=== PATIENT | female | born 1995 | race Caucasian/White ===

== ENCOUNTER 2017-10-25 11:55 | Emergency (ER) | payer BC ==
[2017-10-25] MEDS ORDERED: diphenhydrAMINE 25 MG CAP PO ONE (12:24)
--- NOTE | 2017-10-25 12:52 | EDPHY ---
H & P Stated Complaint: possible allergic reaction Time Seen by Provider: 10/25/17 12:51 HPI/ROS: CHIEF COMPLAINT: Rash after taking penicillin HISTORY OF PRESENT ILLNESS: The patient presents to the ED with a fine rash on her hands after starting penicillin for presumed streptococcal pharyngitis. The patient has a history of chronic intermittent tonsillitis. She has taken amoxicillin in the past many times without a reaction. She denies any chest pain, difficulty breathing or other acute complaints. REVIEW OF SYSTEMS: A comprehensive 10 point review of systems is otherwise negative aside from elements mentioned in the history of present illness. Source: Patient Exam Limitations: No limitations - Personal History LMP (Females 10-55): 8-14 Days Ago Current Tetanus/Diphtheria Vaccine: Yes Current Tetanus Diphtheria and Acellular Pertussis (TDAP): Yes - Medical/Surgical History Hx Asthma: No Hx Chronic Respiratory Disease: No Hx Diabetes: No Hx Cardiac Disease: No Hx Renal Disease: No Hx Cirrhosis: No Hx Alcoholism: No Hx HIV/AIDS: No Hx Splenectomy or Spleen Trauma: No Other PMH: bronchitis - Social History Smoking Status: Never smoked - Physical Exam Exam: General Appearance: Alert, no distress Eyes: Pupils equal and round no pallor or injection ENT, Mouth: Pharyngeal erythema noted, no peritonsillar mass or swelling Respiratory: There are no retractions, lungs are clear to auscultation Cardiovascular: Regular rate and rhythm Gastrointestinal: Abdomen is soft and nontender, no masses, bowel sounds normal Neurological: 5/5 strength all 4 extremities Skin: Fine papular rash noted on the palms of the hands, no rash noted on body or legs Musculoskeletal: Neck is supple nontender Extremities: symmetrical, full range of motion Psychiatric: Patient is oriented X 3, there is no agitation Constitutional: Initial Vital Signs Temperature (C) 37 C 10/25/17 11:56 Heart Rate 96 10/25/17 11:56 Respiratory Rate 16 10/25/17 11:56 Blood Pressure 108/76 10/25/17 11:56 O2 Sat (%) 95 10/25/17 11:56 O2 Delivery Mode Room Air Allergies/Adverse Reactions: No Known Allergies Allergy (Unverified 10/25/17 11:56) Home Medications: Medication Instructions Recorded Azithromycin [Zithromax] 250 mg PO DAILY #6 tab 10/25/17 Bcp 10/25/17 Andres 1.5 mg-30 Mcg Tablet 10/25/17 Penicillin G Procaine 10/25/17 Medical Decision Making ED Course/Re-evaluation: The patient presents to the ED with a mild rash on her hands after taking penicillin for presumed strep pharyngitis. She has no evidence of a peritonsillar mass or significant swelling. The patient will be given a prescription for azithromycin instead of the penicillin she has been taken. The patient has no evidence of airway compromise and is otherwise well- appearing. - Data Points Medications Given: Discontinued Medications Diphenhydramine HCl (Benadryl) 25 mg PO EDNOW ONE Stop: 10/25/17 12:25 Last Admin: 10/25/17 12:27 Dose: 25 mg Departure - Departure Disposition: Home, Routine, Self-Care Clinical Impression: Pharyngitis Condition: Good Instructions: Pharyngitis (ED) Additional Instructions: 1. Please stop taking penicillin and begin azithromycin as directed. 2. Return to the ED for markedly worsening symptoms, high fever, cough, worsening rash or other concerns
[2017-10-25 13:14] VITALS: BP 123/85
== END 2017-10-25 13:34 | disposition home or self-care (01) ==
DX: J02.9 Acute pharyngitis, unspecified (principal); R21 Rash and other nonspecific skin eruption

== ENCOUNTER 2017-10-26 10:15 | Emergency (ER) | payer BC ==
[2017-10-26] MEDS ORDERED: NS 1,000 ML IV ONE (10:36)
--- NOTE | 2017-10-26 10:36 | EDPHY ---
General Time Seen by Provider: 10/26/17 10:27 Narrative: CHIEF COMPLAINT: Rash, allergic reaction HISTORY OF PRESENT ILLNESS: Patient presents with complaints of rash allergic reaction. She states that she developed a sore throat on Saturday and felt that it was likely strep, so she took her roommate penicillin. Soon after this she developed a rash on the hands that has now spread to her face and mouth. She has a painful rash on the hands and now on the bottom of the feet. It has increasing redness and pruritus. She has no difficulty breathing or swallowing. She was seen yesterday at outside facility with a switched her from penicillin to Zithromax. She has no difficulty breathing at this time. She has no blisters. No changes in her symptoms. No other associated complaints or modifying factors REVIEW OF SYSTEMS: 10 systems were reviewed and negative with the exception of the elements mentioned in the history of present illness. PCP: [facility] SPECIALISTS: None PAST MEDICAL HISTORY: Uncomplicated PAST SURGICAL HISTORY: No surgical history SOCIAL HISTORY: Nonsmoker. [employer]. FAMILY HISTORY: Noncontributory EXAMINATION: General Appearance: Alert, no distress Head: normocephalic, atraumatic Eyes: Pupils equal and round, no conjunctival pallor or injection ENT, Mouth: Mucous membranes moist. There are lesions to the mucosa that are ulcerative with erythematous halos. There is no desquamation. The uvula is midline. There is no trismus. Airway is widely patent without posterior edema. Neck: Normal inspection, supple, non-tender . No meningismus or rigidity. Respiratory: Lungs are clear to auscultation. No wheezing, rhonchi or crackles Cardiovascular: Regular rate and rhythm. No murmur Gastrointestinal: Abdomen is soft and nontender Back: non-tender, no bony abnormalities Neurological: A&O, nonfocal, normal gait Skin: Warm and dry. Erythematous rash with central area vesicular appearance to the palms of the hands, soles of the feet and trunk. Consistent with Coxsackie appearance. No desquamating lesions. No petechiae. No purpura Extremities: Minimal tenderness of the hands and feet. Range of motion symmetric Psychiatric: Mood and affect normal DIFFERENTIAL DIAGNOSES: Including but not limited to Martinez-Young syndrome, [id number] of these , herpes simplex, viral pharyngitis, strep pharyngitis MDM: 10:30 a.m. Acute rash to the palms of the hands and oropharynx. I do not appreciate any desquamation. Her airway is patent. The appearance of the oropharynx to me suggest [id number] disease. The palms of the hands have an erythematous, painful rash. There is no systemic urticaria. She does have tenderness to palpation on the bottom of her feet as well. I have discussed with Dr. Wagner, he will evaluate the patient as well. IV will be established. 11:45 a.m. Patient has been evaluated by Dr. Wagner. He agrees that there is no evidence of Angel Young syndrome. He agrees that this is likely [id number] disease. I have discussed symptomatic care for the patient including salt water rinses, ibuprofen, topical steroid to the hands, Magic mouthwash for oral lesions. We discussed increase fluid intake, ED precautions, follow up primary care physician. She is comfortable this plan. She is discharged home stable condition. SUPERVISION: Patient was evaluated and examined in conjunction with my secondary supervising physician as documented. We have both examined the patient. CONSULTATION: None - History Smoking Status: Never smoked - Objective Vital Signs: Initial Vital Signs Temperature (C) 98.2 F 10/26/17 10:22 Heart Rate 93 10/26/17 10:22 Respiratory Rate 18 10/26/17 10:22 Blood Pressure 124/93 H 10/26/17 10:22 O2 Sat (%) 95 10/26/17 10:22 O2 Delivery Mode Nasal Cannula Allergies/Adverse Reactions: Penicillins Allergy (Verified 10/26/17 10:21) Home Medications: Medication Instructions Recorded Azithromycin [Zithromax] 250 mg PO DAILY #6 tab 10/25/17 Bcp 10/25/17 Andres 1.5 mg-30 Mcg Tablet 10/25/17 Penicillin G Procaine 10/25/17 Lidocaine 2% Viscous 5 ml MM QID #100 ml 10/26/17 Triamcinolone 0.1% [Triamcinolone 1 marion TP TID #1 cream 10/26/17 0.1% Cream] hydrOXYzine HCL [Hydroxyzine HCl] 50 mg PO Q6-8PRN PRN #20 tablet 10/26/17 Medications Given: Discontinued Medications Sodium Chloride (Ns) 1,000 mls @ 0 mls/hr IV EDNOW ONE; Wide Open PRN Reason: Protocol Stop: 10/26/17 10:37 Last Admin: 10/26/17 10:54 Dose: 1,000 mls Departure - Departure Disposition: Home, Routine, Self-Care Clinical Impression: Hand, foot and mouth disease Condition: Good Instructions: Hand, Foot, and Mouth Disease (ED) Additional Instructions: 1. Salt water rinses multiple times daily as needed 2. Magic mouthwash as prescribed as needed 3. Topical triamcinolone to the hands 3 times daily for 7-10 days 4. ED precautions as discussed 5. Follow up primary care physician for further care as needed Referrals: Jamil Kim MD [Medical Doctor] - As per Instructions Prescriptions: hydrOXYzine HCL [Hydroxyzine HCl] 50 mg PO Q6-8PRN PRN #20 tablet PRN Reason: Itching Lidocaine 2% Viscous 5 ml MM QID #100 ml Triamcinolone 0.1% [Triamcinolone 0.1% Cream] 1 marion TP TID #1 cream
[2017-10-26 12:15] VITALS: BP 116/75
== END 2017-10-26 12:14 | disposition home or self-care (01) ==
DX: B08.4 Enteroviral vesicular stomatitis with exanthem (principal); E86.9 Volume depletion, unspecified; Z88.0 Allergy status to penicillin